=== PATIENT | male | born 1970 | race Caucasian/White ===

== ENCOUNTER → 2016-07-17 | Emergency (ER) | payer BC, OTHER ==
[~2016-07-17] MED LIST: IBUPROFEN 400 MG TABLET (FP) PO ONE
--- NOTE | 2016-07-17 14:53 | PDOC ---
History of Present Illness - General History Source: Patient, Old Records Exam Limitations: No Limitations <Ankita Cervantes - Last Filed: 07/17/16 15:45> - General History Source: Patient, Spouse Exam Limitations: No Limitations - History of Present Illness Initial Comments: 07/17/16 15:05 The patient is a 45-year-old male, with no significant past medical history, who presents to the emergency department complaining of right shoulder pain s/p mechanical fall on ice in driveway this morning (around 09:00). The patient reports the pain is focused on the center of his right shoulder. He also reports the pain in his shoulder makes him feel as if he pulled something in his diaphragm. The patient states the pain is exacerbated upon deep inspiration , and reports no alleviating factors. He denies any associated head trauma. The patient denies fever, chills, cough, headache, or dizziness. He denies chest pain, diaphoresis, palpitations, or shortness of breath. Allergies: None reported Past Surgical History: None reported. Social History: Non-smoker. Denies alcohol or drug use. <Christie Coronado - Last Filed: 07/17/16 17:57> - General Chief Complaint: Injury Stated Complaint: SHOULDER INJURY Time Seen by Provider: 07/17/16 14:45 Past History <Ankita Cervantes - Last Filed: 07/17/16 15:45> <Christie Coronado - Last Filed: 07/17/16 17:57> - Past Medical History Allergies/Adverse Reactions: Allergies Allergy/AdvReac Type Severity Reaction Status Date / Time No Known Allergies Allergy Verified 07/17/16 14:19 Home Medications: Ambulatory Orders Finasteride 1 mg PO DAILY 07/17/16 Ibuprofen 800 mg PO QID #30 tablet 07/17/16 Paroxetine HCl 40 mg PO DAILY 07/17/16 Review of Systems - Review of Systems Comments:: 07/17/16 15:05 GENERAL/CONSTITUTIONAL: No fever or chills. No weakness. HEAD, EYES, EARS, NOSE AND THROAT: No change in vision. No ear pain or discharge. No sore throat. CARDIOVASCULAR: No chest pain or shortness of breath. RESPIRATORY: No cough, wheezing, or hemoptysis. GASTROINTESTINAL: No nausea, vomiting, diarrhea or constipation. GENITOURINARY: No dysuria, frequency, or change in urination. MUSCULOSKELETAL: +Right shoulder pain. No joint or muscle swelling. No neck or back pain. SKIN: No rash NEUROLOGIC: No headache, vertigo, loss of consciousness, or change in strength/ sensation. ENDOCRINE: No increased thirst. No abnormal weight change. HEMATOLOGIC/LYMPHATIC: No anemia, easy bleeding, or history of blood clots. ALLERGIC/IMMUNOLOGIC: No hives or skin allergy. <Christie Coronado - Last Filed: 07/17/16 17:57> *Physical Exam - Vital Signs Last Vital Signs Temp Pulse Resp BP Pulse Ox 98.6 F 71 16 135/94 100 07/17/16 14:35 07/17/16 14:35 07/17/16 14:35 07/17/16 14:35 07/17/16 14:35 - Physical Exam Comments: 07/17/16 15:06 GENERAL: Awake, alert, and fully oriented, in no acute distress HEAD: No signs of trauma EYES: PERRLA, EOMI, sclera anicteric, conjunctiva clear ENT: Auricles normal inspection, hearing grossly normal, nares patent, oropharynx clear without exudates. Moist mucosa NECK: Normal ROM, supple, no lymphadenopathy, JVD, or masses LUNGS: Breath sounds equal, clear to auscultation bilaterally. No wheezes, and no crackles HEART: Regular rate and rhythm, normal S1 and S2, no murmurs, rubs or gallops ABDOMEN: Soft, nontender, normoactive bowel sounds. No guarding, no rebound. No masses EXTREMITIES: +Point tender to the lateral clavicle and humerus region. Otherwise unremarkable.Normal range of motion, no edema. No clubbing or cyanosis. No cords, erythema, or tenderness NEUROLOGICAL: Cranial nerves II through XII grossly intact. Normal speech, normal gait SKIN: Warm, Dry, normal turgor, no rashes or lesions noted. <Christie Coronado - Last Filed: 07/17/16 17:57> ED Treatment Course - RADIOLOGY Radiograph Interpretation: 07/17/16 17:57 EXAM: Shoulder X-Ray INTERPRETED BY: Dr. Mcallister REVIEWED BY: Dr. Cervantes IMPRESSION: Findings suspicious for AC separation - Medications Given in the ED: ED Medications Discontinued Medications Generic Name Dose Route Start Last Admin Trade Name Freq PRN Reason Stop Dose Admin Ibuprofen 800 mg 07/17/16 14:53 07/17/16 14:55 Motrin - PO 07/17/16 14:54 800 mg ONCE ONE Administration <Christie Coronado - Last Filed: 07/17/16 17:57> Medical Decision Making - Medical Decision Making 07/17/16 14:54 45-year-old male with no significant past medical history presents the emergency Department with complaints of right shoulder pain status post mechanical fall on ice this morning. Differential diagnosis includes but is not limited to: Clavicle fracture, shoulder fracture, shoulder separation, AC separation, contusion. Plan: 1. Plain films of right shoulder 2. Pain management 3. Observe and reevaluate 4. Plain films are negative will discharge home. Ice to the affected areas 24 hours after that heat. NSAIDs as needed for pain. Follow-up with primary care physician or orthopedics as needed. I will advise that the patient return to the emergency department if his symptoms persist, worsen, or new symptoms arise. <Ankita Cervantes - Last Filed: 07/17/16 15:45> *DC/Admit/Observation/Transfer - Discharge Dispostion Admit: No - Attestations Physician Attestion: 07/17/16 15:08 I, Dr. Ankita Cervantes, attest that the scribes documentation that appears above has been prepared under my direction and personally reviewed by me in its entirety. I confirmed that the note above accurately reflects all work, treatment, procedures, and medical decision-making performed by me. <Ankita Cervantes - Last Filed: 07/17/16 15:45> - Attestations Scribe Attestion: 07/17/16 15:06 Documentation prepared by Christie Coronado, acting as medical oncologist for Ankita Cervantes MD. <Christie Coronado - Last Filed: 07/17/16 17:57> Diagnosis at time of Disposition: Contusion of right shoulder, AC separation, type 3 - Discharge Dispostion Disposition: HOME Condition at time of disposition: Stable - Prescriptions Prescriptions: Ibuprofen 800 mg PO QID #30 tablet - Patient Instructions Additional Instructions: You has been diagnosed with an before meals separation. Please wear your sling until cleared by orthopedics. Please follow up with an orthopedic physician within the next week. You may call Dr. Mcmillan at [phone] top make an appointment. You should limit your activity with this arm as it may cause further injury. He may take ibuprofen 800 mg every 8 hours as needed for the pain. Return to the emergency department if your symptoms persist, worsen, or new symptoms arise. - Post Discharge Activity Work/School Note: Back to Work
[2016-07-17 15:02] VITALS: BP 135/94; PULSE 71; TEMP 98.6; BMI 25.8
== END | disposition home or self-care (01) ==
LOC: FER 14:16
DX: S40.011A Contusion of right shoulder, initial encounter (principal); S43.101A Unspecified dislocation of right acromioclavicular joint, initial encounter; W00.9XXA Unspecified fall due to ice and snow, initial encounter; Y93.89 Activity, other specified; Y92.410 Unspecified street and highway as the place of occurrence of the external cause
CPT/HCPCS: 73030-TC-RT; 99281-25

== ENCOUNTER 2022-08-05 15:13 | Emergency (ER) | payer BC, OTHER ==
[2022-08-05 15:20] VITALS: BP 135/84; RESP 18; TEMP 97.9; BMI 24.3
[2022-08-05] MEDS ORDERED: DIPHTH,PERTUSS(ACELL),TET 0.5 ML DISP.SYRIN IM ONE ×2 (15:43→15:45)
[2022-08-05 16:13] VITALS: PULSE 98
== END 2022-08-05 16:25 | disposition home or self-care (01) ==
LOC: JERFT 15:13
PROC: 0HQGXZZ Repair Left Hand Skin, External Approach (ICD-10-PCS; principal; 2022-08-05)
PROC: 3E0234Z Introduction of Serum, Toxoid and Vaccine into Muscle, Percutaneous Approach (ICD-10-PCS; 2022-08-05)
DX: S61.211A Laceration without foreign body of left index finger without damage to nail, initial encounter (principal); W26.8XXA Contact with other sharp object(s), not elsewhere classified, initial encounter
CPT/HCPCS: 90715; 99284-25

== ENCOUNTER 2022-08-16 16:39 | Emergency (ER) | payer BC ==
[2022-08-16 17:03] VITALS: BP 129/72; PULSE 82; RESP 16; TEMP 97.8; BMI 24.3
== END 2022-08-16 17:19 | disposition home or self-care (01) ==
LOC: FER 16:39
DX: Z48.02 Encounter for removal of sutures (principal)
CPT/HCPCS: 99281-25